=== PATIENT | male | born 1995 | race Caucasian/White ===

== ENCOUNTER 2020-09-04 10:24 | Emergency (ER) | payer SELFPAY ==
[~2020-09-04] VITALS: Ht 177.8 cm; Wt 81.8 kg
[~2020-09-04 10:24] MED LIST: CLARITIN 10 MG10 MG PO; ZPAK PO
[2020-09-04 10:31] VITALS: Ht 177.8 cm; Wt 81.8 kg
[2020-09-04 11:35] VITALS: BP 126/79
[2020-09-04] MEDS ORDERED: CYCLOBENZAPRINE10 MG PO (11:43)
[2020-09-04] MEDS ORDERED: ACETAMINOPHEN500 M1 PO (11:43)
[2020-09-04] MEDS ORDERED: IBUPROFEN800 MG PO (11:43)
== END 2020-09-04 12:01 | disposition home or self-care (01) ==
LOC: D.ER 10:24
DX: S00.83XA Contusion of other part of head, initial encounter (principal); M79.18 Myalgia, other site; Y08.89XA Assault by other specified means, initial encounter; T14.8XXA Other injury of unspecified body region, initial encounter